=== PATIENT | male | born 1940 | race Caucasian/White ===

== ENCOUNTER 2018-09-21 16:54 | Emergency (ER) | payer MEDICARE, OTHER ==
[2018-09-21 17:03] VITALS: BP 158/81
[2018-09-21] MEDS: Sodium Chloride 0.9% 500 ML IV ONE (17:57)
[2018-09-21] MEDS: Sodium Chloride 0.9% 10 ML Syringe FLUSH PRN (17:58)
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
[2018-09-21] MEDS: Aspirin 81 MG Tab.Chew PO ONE (19:11)
[2018-09-21] MEDS: Nitroglycerin 2% Oint 1 GM UD Packet TOP ONE (19:25)
[2018-09-21] MEDS: Aluminum Hydroxide/Magnesium Hydroxide/Simethicone Susp 30 ML Cup PO ONE (19:25)
[2018-09-21] MEDS: Heparin Sodium 5,000 Units/ML Vial IVPUSH ONE ×2 (19:32→19:33)
[2018-09-21] MEDS: Heparin Sodium/D5W 25,000 UNITS/500 ML BAG IV SCH (19:34)
[2018-09-21] MEDS: Heparin Sodium/D5W 500 ML ONE (19:35)
--- NOTE | 2018-09-22 08:17 | CR ---
Chest: Portable view of the chest was obtained. Comparison: Prior chest x-ray of 07/25/16. Heart size and mediastinum are stable in appearance from prior chest x-ray. Lungs are clear with no acute parenchymal change. Previous sternotomy is noted. Bony structures are grossly intact. Impression: 1. Stable findings. Nothing acute is appreciated on portable chest x-ray. Diagnostic code #2
== END 2018-09-21 22:21 ==
LOC: JD.ED 16:54
DX: I21.4 Non-ST elevation (NSTEMI) myocardial infarction (principal); I10 Essential (primary) hypertension; E11.9 Type 2 diabetes mellitus without complications; Z87.891 Personal history of nicotine dependence; Z79.82 Long term (current) use of aspirin; Z79.899 Other long term (current) drug therapy
CPT/HCPCS: 36415; 71045; 80053; 84484; 85025; 93005; 96361; 96365; 96366; 99285; A9270; J1644; J7040; 93010; 99284

== ENCOUNTER 2018-11-09 18:12 | Emergency (ER) | payer MEDICARE, OTHER ==
[2018-11-09] MEDS ORDERED: cloNIDine 0.1 MG Tab PO ONE ×2 (19:18→19:32)
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
[2018-11-09 20:00] VITALS: BP 196/69
== END 2018-11-09 20:43 | disposition home or self-care (01) ==
LOC: JD.ED 18:12
DX: I10 Essential (primary) hypertension (principal); I25.2 Old myocardial infarction; Z79.82 Long term (current) use of aspirin; Z79.899 Other long term (current) drug therapy; Z87.891 Personal history of nicotine dependence
CPT/HCPCS: 36415; 80053; 84484; 85025; 93005; 99283; A9270; 93010; 99284

== ENCOUNTER 2018-11-22 17:41 | Emergency (ER) | payer MEDICARE ==
[2018-11-22] MEDS ORDERED: cloNIDine 0.1 MG Tab PO ONE (18:29)
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
[2018-11-22 20:09] VITALS: BP 173/73
== END 2018-11-22 20:21 | disposition home or self-care (01) ==
LOC: JD.ED 17:41
DX: I95.1 Orthostatic hypotension (principal); I10 Essential (primary) hypertension; F41.9 Anxiety disorder, unspecified; I25.10 Atherosclerotic heart disease of native coronary artery without angina pectoris; E78.00 Pure hypercholesterolemia, unspecified; I25.2 Old myocardial infarction; K21.9 Gastro-esophageal reflux disease without esophagitis; E11.9 Type 2 diabetes mellitus without complications; Z79.82 Long term (current) use of aspirin; Z79.899 Other long term (current) drug therapy; Z87.891 Personal history of nicotine dependence; Z79.84 Long term (current) use of oral hypoglycemic drugs
CPT/HCPCS: 36415; 80053; 84484; 85007; 85027; 99285; A9270; 93010; 99284

== ENCOUNTER 2020-03-24 16:50 | Emergency (ER) | payer MEDICARE, OTHER ==
[2020-03-24 17:05] VITALS: BP 149/75; PULSE 63
--- NOTE | 2020-03-24 18:08 | EDM.PDOC ---
<Emerson Blackburn Lynette - Last Filed: 03/24/20 17:48> ED HPI GENERAL MEDICAL PROBLEM - General Chief Complaint: Diabetic Complaint Stated Complaint: HIGH BLOOD SUGAR Time Seen by Provider: 03/24/20 17:15 Source of Information: Reports: Patient - History of Present Illness INITIAL COMMENTS - FREE TEXT/NARRATIVE: Patient came to the ER today to be evaluated for abnormally high blood glucose readings at home. Pt has a history of DM 2 for which he takes only metformin. Pt recently had a tooth pulled 2 weeks ago and had been on penicillin x1 week. After finishing his penicillin regimen pt developed a persistent sweet taste in his mouth. This was worse at night.This persistent sweet taste prompted pt to check his blood glucose levels yesterday before his noon meal. Pt reports his glucose levels were in the 170s. Concerned about having elevated glucose levels, as well as this persistent sweet taste, pt rechecked his glucose levels again today before his noon meal and it was in the 180s. Pt reported that he had not checked his glucose levels in a long time and his glucose monitor is somewhat old. I asked pt if he had quality controlled his monitor and he had not, nor did he have any solution to do so. A bedside blood sugar was obtained in the ER with a result of 78. Pt reports that he see his primary care provider, Dr Gilmore, every 3-4 months and had an appointment coming up within the next week. When asked if he has his A1C monitored, pt did not know what this was or if it was being monitored. Time was taken to explain the purpose and relevance of this test. Pt denies excess thirst, dizziness or lightheadedness, excess hunger, increased fatigue or weakness, chills, fever, increased urination, or night sweats. - Related Data Allergies Allergy/AdvReac Type Severity Reaction Status Date / Time No Known Allergies Allergy Verified 03/24/20 17:04 Home Meds: Home Meds Aspirin [Halfprin] 81 mg PO DAILY 09/21/18 [History] Losartan Potassium [Cozaar] 50 mg PO BID 09/21/18 [History] [place]-3/DHA/Epa/Fish Oil [Fish Oil 1,000 mg Softgel] 1 each PO DAILY 09/21/18 [History] Potassium 20 meq PO DAILY 09/21/18 [History] Rosuvastatin Calcium [Crestor] 40 mg PO DAILY 09/21/18 [History] metFORMIN [Glucophage] 500 mg PO DAILY 09/21/18 [History] Docusate Sodium [Stool Softener] 100 mg PO DAILY 11/09/18 [History] Metoprolol Succinate [Toprol XL] 12.5 mg PO DAILY 11/09/18 [History] PARoxetine HCl [Paxil] 10 mg PO QAM #30 tablet 11/22/18 [Rx] Past Medical History HEENT History: Reports: Impaired Vision Cardiovascular History: Reports: CAD, High Cholesterol, Hypertension, [place] Respiratory History: Reports: Sleep Apnea Gastrointestinal History: Reports: GERD Genitourinary History: Reports: BPH Musculoskeletal History: Reports: Other (See Below) Other Musculoskeletal History: DJD right foot, L knee pain Endocrine/Metabolic History: Reports: Diabetes, Type II - Past Surgical History HEENT Surgical History: Reports: Oral Surgery Cardiovascular Surgical History: Reports: Coronary Artery Bypass GI Surgical History: Reports: Colonoscopy Social & Family History - Family History Family Medical History: Noncontributory - Tobacco Use Smoking Status *Q: Former Smoker Used Tobacco, but Quit: Yes Month/Year Tobacco Last Used: 40 years ago - Caffeine Use Caffeine Use: Reports: Coffee - Recreational Drug Use Recreational Drug Use: No ED ROS GENERAL - Review of Systems Review Of Systems: See Below Constitutional: Reports: No Symptoms. Denies: Fever, Chills, Malaise, Weakness, Fatigue, Night Sweats, Diaphoresis, Decreased Appetite, Weight Loss HEENT: Reports: No Symptoms Respiratory: Reports: No Symptoms Cardiovascular: Reports: No Symptoms Endocrine: Reports: High Glucose (See HPI). Denies: Fatigue GI/Abdominal: Reports: No Symptoms : Reports: No Symptoms. Denies: Frequency, Urgency Musculoskeletal: Reports: No Symptoms Skin: Reports: No Symptoms Neurological: Reports: No Symptoms. Denies: Confusion, Dizziness, Weakness Psychiatric: Reports: No Symptoms Hematologic/Lymphatic: Reports: No Symptoms Immunologic: Reports: No Symptoms ED EXAM GENERAL NO PERIP PULSE - Physical Exam Exam: See Below Exam Limited By: No Limitations General Appearance: Alert, WD/WN, No Apparent Distress Ears: Normal External Exam Throat/Mouth: Normal Inspection, Normal Lips, Normal Teeth, Normal Gums, Normal Oropharynx, Normal Voice, No Airway Compromise Head: Atraumatic, Normocephalic Neck: Normal Inspection, Supple, Non-Tender, Full Range of Motion Respiratory/Chest: No Respiratory Distress, Lungs Clear, Normal Breath Sounds, No Accessory Muscle Use, Chest Non-Tender Cardiovascular: Normal Peripheral Pulses, Regular Rate, Rhythm, No Edema, No Gallop, No JVD, No Murmur, No Rub GI/Abdominal: Soft, Non-Tender, No Distention (Male) Exam: Deferred Rectal (Males) Exam: Deferred Neurological: Alert, Oriented, CN II-XII Intact, Normal Cognition, Normal Gait, No Motor/Sensory Deficits Psychiatric: Normal Affect, Normal Mood Skin Exam: Warm, Dry, Intact, Normal Color, No Rash Departure - Departure Disposition: Home, Self-Care 01 Clinical Impression: Elevated blood sugar level - Discharge Information Instructions: Blood Glucose Monitoring, Adult Referrals: Stephane Gilmore MD [Primary Care Provider] - Forms: ED Department Discharge Additional Instructions: You were evaluated in the ER today regarding your elevated blood glucose levels at home. Your blood sugar at today's visit, was within normal limits at 78. Other laboratory evaluation demonstrates no worrisome abnormalities. Your hemoglobin A1c is 6.3 at today's visit, which is acceptable. At this level, there is no further emergent requirements needed for management of your blood sugars. I highly suspect, that your blood sugar monitor at home was not reading eliot ropriately, I recommend that you obtain a new glucose monitor, and check your blood sugars on at least a daily basis, to make sure that they are within normal limits. Regarding the funny taste in your mouth, no clear cause has been determined at today's visit. Recommend you follow-up with Dr. Gilmore, for further management and testing if warranted. Please return to the ER at any time if your symptoms change or worsen. Sepsis Event Note (ED) - Evaluation Sepsis Screening Result: No Definite Risk <Katelyn Ramirez V - Last Filed: 03/24/20 18:56> Course - Vital Signs Last Recorded V/S: Last Vital Signs Temp 97.5 F 03/24/20 17:01 Pulse 63 03/24/20 17:01 Resp 16 03/24/20 17:01 BP 149/75 H 03/24/20 17:01 Pulse Ox 99 03/24/20 17:01 - Orders/Labs/Meds Orders: Active Orders 24 hr Category Date Time Status Glucose [Blood Glucose Check, Bedside] [RC] ONETIME Care 03/24/20 17:16 Ordered Labs: Laboratory Tests 03/24/20 03/24/20 03/24/20 Range/Units 17:10 18:15 18:15 WBC 5.73 (4.23-9.07) K/mm3 RBC 3.92 L (4.63-6.08) M/mm3 Hgb 12.4 L (13.7-17.5) gm/dl Hct 37.1 L (40.1-51.0) % MCV 94.6 H (79.0-92.2) fl MCH 31.6 (25.7-32.2) pg MCHC 33.4 (32.2-35.5) g/dl RDW Std Deviation 42.9 (35.1-43.9) fL Plt Count 215 (163-337) K/mm3 MPV 9.7 (9.4-12.3) fl Neut % (Auto) 66.1 (34.0-67.9) % Lymph % (Auto) 22.7 (21.8-53.1) % [place] % (Auto) 9.1 (5.3-12.2) % Eos % (Auto) 1.6 (0.8-7.0) Baso % (Auto) 0.5 (0.1-1.2) % Neut # (Auto) 3.79 (1.78-5.38) K/mm3 Lymph # (Auto) 1.30 L (1.32-3.57) K/mm3 [place] # (Auto) 0.52 (0.30-0.82) K/mm3 Eos # (Auto) 0.09 (0.04-0.54) K/mm3 Baso # (Auto) 0.03 (0.01-0.08) K/mm3 Sodium 140 (136-145) mEq/L Potassium 4.2 (3.5-5.1) mEq/L Chloride 107 (98-107) mEq/L Carbon Dioxide 28 (21-32) mEq/L Anion Gap 9.2 (5-15) BUN 29 H (7-18) mg/dL Creatinine 1.3 (0.7-1.3) mg/dL Est Cr Clr Drug Dosing 40.90 mL/min Estimated GFR (MDRD) 53 (>60) mL/min BUN/Creatinine Ratio 22.3 H (14-18) Glucose 89 (83-115) mg/dL POC Glucose 78 L (83-110) mg/dL Hemoglobin A1c (4.50-6.20) % Calcium 9.2 (8.5-10.1) mg/dL Total Bilirubin 0.4 (0.2-1.0) mg/dL AST 18 (15-37) U/L ALT 26 (16-63) U/L Alkaline Phosphatase 57 (46-116) U/L Total Protein 6.9 (6.4-8.2) g/dl Albumin 3.7 (3.4-5.0) g/dl Globulin 3.2 gm/dL Albumin/Globulin Ratio 1.2 (1-2) 03/24/20 Range/Units 18:15 WBC (4.23-9.07) K/mm3 RBC (4.63-6.08) M/mm3 Hgb (13.7-17.5) gm/dl Hct (40.1-51.0) % MCV (79.0-92.2) fl MCH (25.7-32.2) pg MCHC (32.2-35.5) g/dl RDW Std Deviation (35.1-43.9) fL Plt Count (163-337) K/mm3 MPV (9.4-12.3) fl Neut % (Auto) (34.0-67.9) % Lymph % (Auto) (21.8-53.1) % [place] % (Auto) (5.3-12.2) % Eos % (Auto) (0.8-7.0) Baso % (Auto) (0.1-1.2) % Neut # (Auto) (1.78-5.38) K/mm3 Lymph # (Auto) (1.32-3.57) K/mm3 [place] # (Auto) (0.30-0.82) K/mm3 Eos # (Auto) (0.04-0.54) K/mm3 Baso # (Auto) (0.01-0.08) K/mm3 Sodium (136-145) mEq/L Potassium (3.5-5.1) mEq/L Chloride (98-107) mEq/L Carbon Dioxide (21-32) mEq/L Anion Gap (5-15) BUN (7-18) mg/dL Creatinine (0.7-1.3) mg/dL Est Cr Clr Drug Dosing mL/min Estimated GFR (MDRD) (>60) mL/min BUN/Creatinine Ratio (14-18) Glucose (83-115) mg/dL POC Glucose (83-110) mg/dL Hemoglobin A1c 6.30 H (4.50-6.20) % Calcium (8.5-10.1) mg/dL Total Bilirubin (0.2-1.0) mg/dL AST (15-37) U/L ALT (16-63) U/L Alkaline Phosphatase (46-116) U/L Total Protein (6.4-8.2) g/dl Albumin (3.4-5.0) g/dl Globulin gm/dL Albumin/Globulin Ratio (1-2) - Re-Assessments/Exams Free Text/Narrative Re-Assessment/Exam: 03/24/20 18:19 I have read and reviewed the student's HPI and examined the patient and agree with Gina Blackburn, [employer]-student. Patient presents to the ED for the evaluation of his elevated blood sugars, and other general complaints. Blood sugar at time of triage is within normal limits at 78. Questioning whether or not his glucose monitor at home is reading accurate. Nonetheless basic labs will be taken to include CBC, CMP and a hemoglobin A1c 03/24/20 18:52 Laboratory evaluation demonstrates no focal worrisome abnormalities. The patient's hemoglobin A1c is 6.3, which is fairly okay for a diabetic. We will have him obtain a new glucose monitor, and check his blood sugars at home, at least 2 times a day to make sure that they are in fact normal, and not elevated. Patient was complaining about the taste in his mouth. Not exactly sure what is causing this, but he is going to follow-up with Dr. Gilmore, sometime this week for further evaluation and management. Departure - Departure Time of Disposition: 18:53 Condition: Good - Discharge Information *PRESCRIPTION DRUG MONITORING PROGRAM REVIEWED*: No *COPY OF PRESCRIPTION DRUG MONITORING REPORT IN PATIENT DAHLIA: No Sepsis Event Note (ED) - Focused Exam Vital Signs: Vital Signs Temp Pulse Resp BP Pulse Ox 03/24/20 17:01 97.5 F 63 16 149/75 H 99 - My Orders Last 24 Hours: My Active Orders 03/24/20 17:16 Glucose [Blood Glucose Check, Bedside] [RC] ONETIME - Assessment/Plan Last 24 Hours: My Active Orders 03/24/20 17:16 Glucose [Blood Glucose Check, Bedside] [] ONETIME
[2020-03-24 18:35] LABS: HEMOGLOBIN A1C 6.3 % (4.50-6.20)
== END 2020-03-24 19:08 | disposition home or self-care (01) ==
LOC: JD.ED 16:50
DX: R73.9 Hyperglycemia, unspecified (principal); E11.9 Type 2 diabetes mellitus without complications; I10 Essential (primary) hypertension; I25.10 Atherosclerotic heart disease of native coronary artery without angina pectoris; E78.00 Pure hypercholesterolemia, unspecified; I25.2 Old myocardial infarction; Z79.899 Other long term (current) drug therapy; Z79.82 Long term (current) use of aspirin; Z87.891 Personal history of nicotine dependence
CPT/HCPCS: 36415; 80053; 82962; 83036; 85025; 99282; 99283

== ENCOUNTER 2020-06-24 13:45 | Emergency (ER) | payer MEDICARE ==
[2020-06-24 14:13] VITALS: PULSE 61
[2020-06-24] MEDS ORDERED: cloNIDine 0.1 MG Tab PO ONE (15:48)
[2020-06-24 16:03] VITALS: BP 207/76
--- NOTE | 2020-06-24 16:04 | EDM.PDOC ---
ED HPI GENERAL MEDICAL PROBLEM - General Chief Complaint: Cardiovascular Problem Stated Complaint: HIGH BLOOD PRESSURE Time Seen by Provider: 06/24/20 15:13 Source of Information: Reports: Patient, Old Records, RN Notes Reviewed History Limitations: Reports: No Limitations - History of Present Illness INITIAL COMMENTS - FREE TEXT/NARRATIVE: Patient is an 80-year-old male who presents to the ED for evaluation of his elevated blood pressure. Patient notes that he does have a history of hypertension and does take losartan/hydrochlorothiazide 100-12.5 mg daily as prescribed. He notes however for the last 3 days his blood pressure has been higher than it usually is. He reports that his systolic blood pressures have been in the 160s. He notes that he has having no symptoms, he feels no headache, no chest pain, no shortness of breath, and feels generally well so he is not sure what is causing the elevated blood pressure. He has not had any recent change in dosage of the medication. He takes his pills at the same time each day. His primary care provider is Dr. Gilmore. He notes that roughly 1 year ago, he was seen for the same problem and they switched his blood pressure medication. He denies being around any known sick contacts. - Related Data Allergies Allergy/AdvReac Type Severity Reaction Status Date / Time No Known Allergies Allergy Verified 06/24/20 14:10 Home Meds: Home Meds [place]-3/DHA/Epa/Fish Oil [Fish Oil 1,000 mg Softgel] 1 each PO DAILY 09/21/18 [History] Rosuvastatin Calcium [Crestor] 40 mg PO DAILY 09/21/18 [History] metFORMIN [Glucophage] 500 mg PO DAILY 09/21/18 [History] Losartan/Hydrochlorothiazide [Losartan-HCTZ 100-12.5 MG] 1 tab PO DAILY 06/24/20 [History] Omeprazole 20 mg PO DAILY 06/24/20 [History] amLODIPine [Norvasc] 5 mg PO DAILY #15 tab 06/24/20 [Rx] Past Medical History HEENT History: Reports: Impaired Vision Cardiovascular History: Reports: CAD, High Cholesterol, Hypertension, [place] Respiratory History: Reports: Sleep Apnea Gastrointestinal History: Reports: GERD Genitourinary History: Reports: BPH Musculoskeletal History: Reports: Other (See Below) Other Musculoskeletal History: DJD right foot, L knee pain Endocrine/Metabolic History: Reports: Diabetes, Type II - Past Surgical History HEENT Surgical History: Reports: Oral Surgery Cardiovascular Surgical History: Reports: Coronary Artery Bypass GI Surgical History: Reports: Colonoscopy Social & Family History - Family History Family Medical History: No Pertinent Family History - Tobacco Use Tobacco Use Status *Q: Former Tobacco User Used Tobacco, but Quit: Yes Month/Year Tobacco Last Used: "long time ago" - Caffeine Use Caffeine Use: Reports: Coffee - Recreational Drug Use Recreational Drug Use: No ED ROS GENERAL - Review of Systems Review Of Systems: Comprehensive ROS is negative, except as noted in HPI. ED EXAM, GENERAL - Physical Exam Exam: See Below Exam Limited By: No Limitations General Appearance: Alert, WD/WN, No Apparent Distress Respiratory/Chest: No Respiratory Distress, Lungs Clear, Normal Breath Sounds, No Accessory Muscle Use, Chest Non-Tender Cardiovascular: Normal Peripheral Pulses, Regular Rate, Rhythm, No Edema, No Murmur Peripheral Pulses: 2+: Radial (L), Radial (R) Extremities: Normal Inspection, Normal Capillary Refill Neurological: Alert, Oriented, Normal Cognition, No Motor/Sensory Deficits Psychiatric: Normal Affect, Normal Mood Skin Exam: Warm, Dry, Intact, Normal Color, No Rash #1 Interpretation EKG Date: 06/24/20 Time: 16:03 Rhythm: NSR Rate (Beats/Min): 56 [place]: Normal P-Wave: Present QRS: LBBB (consider atypical LBBB) ST-T: Normal QT: Normal Comparison: Other: (prior EKG from 11/2018 shows RBBB) EKG Interpretation Comments: No obvious ischemia or acute ST changes noted, reviewed by myself and Dr. Molina. Course - Vital Signs Last Recorded V/S: Last Vital Signs Temp 97 F 06/24/20 14:07 Pulse 61 06/24/20 14:07 Resp 16 06/24/20 14:07 BP 207/76 H 06/24/20 16:01 Pulse Ox 99 06/24/20 14:07 - Orders/Labs/Meds Orders: Active Orders 24 hr Category Date Time Status EKG Documentation Completion [RC] STAT Care 06/24/20 15:50 Active Labs: Laboratory Tests 06/24/20 06/24/20 Range/Units 16:17 16:17 WBC 5.97 (4.23-9.07) K/mm3 RBC 4.15 L (4.63-6.08) M/mm3 Hgb 13.1 L (13.7-17.5) gm/dl Hct 39.2 L (40.1-51.0) % MCV 94.5 H (79.0-92.2) fl MCH 31.6 (25.7-32.2) pg MCHC 33.4 (32.2-35.5) g/dl RDW Std Deviation 41.8 (35.1-43.9) fL Plt Count 198 (163-337) K/mm3 MPV 9.6 (9.4-12.3) fl Neut % (Auto) 61.7 (34.0-67.9) % Lymph % (Auto) 28.8 (21.8-53.1) % [place] % (Auto) 7.9 (5.3-12.2) % Eos % (Auto) 1.3 (0.8-7.0) Baso % (Auto) 0.3 (0.1-1.2) % Neut # (Auto) 3.68 (1.78-5.38) K/mm3 Lymph # (Auto) 1.72 (1.32-3.57) K/mm3 [place] # (Auto) 0.47 (0.30-0.82) K/mm3 Eos # (Auto) 0.08 (0.04-0.54) K/mm3 Baso # (Auto) 0.02 (0.01-0.08) K/mm3 Sodium 143 (136-145) mEq/L Potassium 4.0 (3.5-5.1) mEq/L Chloride 106 (98-107) mEq/L Carbon Dioxide 27 (21-32) mEq/L Anion Gap 14.0 (5-15) BUN 23 H (7-18) mg/dL Creatinine 1.3 (0.7-1.3) mg/dL Est Cr Clr Drug Dosing 36.47 mL/min Estimated GFR (MDRD) 53 (>60) mL/min BUN/Creatinine Ratio 17.7 (14-18) Glucose 82 L (83-115) mg/dL Calcium 9.8 (8.5-10.1) mg/dL Total Bilirubin 0.7 (0.2-1.0) mg/dL AST 20 (15-37) U/L ALT 24 (16-63) U/L Alkaline Phosphatase 60 (46-116) U/L Troponin I < 0.017 (0.00-0.056) ng/mL Total Protein 6.9 (6.4-8.2) g/dl Albumin 3.8 (3.4-5.0) g/dl Globulin 3.1 gm/dL Albumin/Globulin Ratio 1.2 (1-2) Meds: Medications Discontinued Medications Generic Name Dose Route Start Last Admin Trade Name Kenia PRN Reason Stop Dose Admin Clonidine HCl 0.1 mg 06/24/20 15:48 06/24/20 16:01 Catapres PO 06/24/20 15:49 0.1 mg ONETIME ONE Administration - Re-Assessments/Exams Free Text/Narrative Re-Assessment/Exam: 06/24/20 15:56 Patient presents to the ED for evaluation of his elevated blood pressure. We will get baseline labs and EKG for initial evaluation. I have ordered clonidine 0.1 mg at this time to see if this helps lower his blood pressure. Plan is to hopefully add on 5 mg amlodipine daily for further blood pressure management. I will have him follow-up with Dr. Gilmore, sometime this week and keep a log of his blood pressures. 06/24/20 17:07 Labs are unremarkable at this time. Clonidine has worked pretty well, his blood pressure is down to 166 systolically. We will discharge him home with general recommendations and have him follow-up with his regular care provider sometime in the next week with continued blood pressure readings. Departure - Departure Time of Disposition: 17:08 Disposition: Home, Self-Care 01 Condition: Good Clinical Impression: Elevated blood pressure reading in office with diagnosis of hypertension Prescriptions: amLODIPine [Norvasc] 5 mg PO DAILY #15 tab Instructions: Managing Your Hypertension Referrals: Stephane Gilmore MD [Primary Care Provider] - Forms: ED Department Discharge Additional Instructions: You were evaluated in the ER today for your elevated blood pressure readings. Laboratory evaluation and EKG are all unremarkable at this time. You were given 1 dose of medication to help lower your blood pressure in the ER, and this did seem to help your blood pressure. Please continue all other medications as previously prescribed, you have been started on another low-dose blood pressure medication called amlodipine, 5 mg, once daily for the next week or so. Please monitor your blood pressure at home while taking this medication, and follow-up with your primary care provider sometime in the next week or week and a half to make sure that your blood pressure readings are getting back to normal, and for continuation or change in your medication as is warranted. Please return to the ER at any time if your symptoms change or worsen. Sepsis Event Note (ED) - Evaluation Sepsis Screening Result: No Definite Risk - Focused Exam Vital Signs: Vital Signs Temp Pulse Resp BP BP Pulse Ox 06/24/20 16:01 207/76 H 06/24/20 14:07 97 F 61 16 206/69 H 99 - My Orders Last 24 Hours: My Active Orders 06/24/20 15:50 EKG Documentation Completion [RC] STAT - Assessment/Plan Last 24 Hours: My Active Orders 06/24/20 15:50 EKG Documentation Completion [RC] STAT
== END 2020-06-24 17:45 | disposition home or self-care (01) ==
LOC: JD.ED 13:45
DX: I10 Essential (primary) hypertension (principal); E78.00 Pure hypercholesterolemia, unspecified; I25.10 Atherosclerotic heart disease of native coronary artery without angina pectoris; I25.2 Old myocardial infarction; K21.9 Gastro-esophageal reflux disease without esophagitis; E11.9 Type 2 diabetes mellitus without complications; Z87.891 Personal history of nicotine dependence; Z79.899 Other long term (current) drug therapy
CPT/HCPCS: 36415; 80053; 84484; 85025; 93005; 99283; A9270; 93010

== ENCOUNTER 2023-09-07 15:40 | Inpatient (IN) | payer MEDICARE ==
[2023-09-07] MEDS ORDERED: Lidocaine 1% with EPINEPHrine 1:100,000 10 ML MDV INJECT ONE (15:52)
[2023-09-07 16:10] LABS: HEMATOCRIT 34.7 % (42.0-52.0); MEAN CORPUSCULAR HEMOGLOBIN 32.7 pg (28.0-32.0); MEAN CORPUSCULAR HGB CONC 34.6 g/dl (32.0-36.0); MEAN CORPUSCULAR VOLUME 94.6 fl (83.0-99.0); MEAN PLATELET VOLUME 10.2 fl (9.4-12.4); PLATELET COUNT,PLT 198 K/mm3 (150-400); RED BLOOD CELL COUNT 3.67 M/mm3 (4.52-5.90); WHITE BLOOD CELL COUNT,WBC 6.53 K/mm3 (3.9-11.3)
[2023-09-07 16:32] LABS: INR 1.01; PROTHROMBIN TIME 10.8 SECONDS (9.7-12.0)
[2023-09-07 16:47] LABS: ALBUMIN 3.3 g/dl (3.4-5.0); ANION GAP 14.9 (5-15); BILIRUBIN TOTAL 0.4 mg/dL (0.2-1.0); BUN/CREATININE RATIO 16.9 (14-18); CREATININE 1.6 mg/dL (0.7-1.3); EST CRCL DRUG DOSING (CG) 31.57 mL/min; POTASSIUM,K 3.9 mEq/L (3.5-5.1); PROTEIN TOTAL,TP 6.5 g/dl (6.4-8.2)
[2023-09-07] MEDS: Diphtheria,Pertussis(Acell),Tetanus Vaccine 0.5 ML Syringe IM ONE (17:29)
[2023-09-07] MEDS: Lidocaine 1% with EPINEPHrine 1:100,000 20 ML MDV INJECT ONE (17:31)
[2023-09-07] MEDS ORDERED: Acetaminophen/HYDROcodone 325-5 MG Tab PO PRN (19:05)
[2023-09-07] MEDS ORDERED: Morphine 2 MG/ML SYRINGE IVPUSH PRN (19:05)
[2023-09-07] MEDS ORDERED: Ondansetron 4 MG/2 ML SDV IV PRN (19:05)
[2023-09-07] MEDS ORDERED: hydrALAZINE 20 MG/ML SDV IVPUSH PRN (19:13)
[2023-09-07] MEDS ORDERED: 50% Dextrose in Water 50 ML Syringe IVPUSH PRN (19:37)
[2023-09-07] MEDS ORDERED: Glucagon,Human Recombinant 1 MG Vial IM PRN (19:37)
[2023-09-07] MEDS: Rosuvastatin 10 MG Tab PO SCH (20:23)
[2023-09-07] MEDS: Pantoprazole 40 MG Tab.CR PO SCH (20:24)
[2023-09-07] MEDS: Sodium Chloride 0.9% 1,000 ML IV SCH (22:18)
[2023-09-08 04:44] LABS: BASOPHILS PERCENT AUTO 0.3 % (0.0-1.0); EOSINOPHILS ABSOLUTE AUTO 0.1 K/mm3 (0.0-0.4); EOSINOPHILS PERCENT AUTO 0.8 % (0.0-6.0); HEMATOCRIT 33.5 % (42.0-52.0); HEMOGLOBIN 11.4 gm/dl (14.0-18.0); IMMATURE GRAN ABSOLUTE AUTO 0.02 K/mm3 (0.00-0.05); IMMATURE GRAN PERCENT AUTO 0.2 % (0.0-0.4); LYMPHOCYTES PERCENT AUTO 22.1 % (24.0-44.0); MEAN CORPUSCULAR HEMOGLOBIN 31.7 pg (28.0-32.0); MEAN CORPUSCULAR VOLUME 93.1 fl (83.0-99.0); MEAN PLATELET VOLUME 10.1 fl (9.4-12.4); MONOCYTES ABSOLUTE AUTO 0.7 K/mm3 (0.0-0.8); MONOCYTES PERCENT AUTO 7.6 % (0.0-8.0); NEUTROPHILS ABSOLUTE AUTO 6.1 K/mm3 (1.8-7.7); PLATELET COUNT,PLT 189 K/mm3 (150-400)
[2023-09-08 05:40] LABS: ANION GAP 14.5 (5-15); BUN/CREATININE RATIO 16.7 (14-18); CALCIUM 8.8 mg/dL (8.5-10.1); CREATININE 1.2 mg/dL (0.7-1.3); EST CRCL DRUG DOSING (CG) 42.09 mL/min; POTASSIUM,K 3.5 mEq/L (3.5-5.1)
[2023-09-08] MEDS: Insulin Lispro 100 Unit/ML 3 ML KwikPen SUBCUT SCH (06:49)
[2023-09-08 11:04] LABS: MAGNESIUM 1.8 mg/dL (1.8-2.4); PHOSPHORUS 3.1 mg/dL (2.6-4.7); TSH 2.029 uIU/mL (0.358-3.74)
[2023-09-08] MEDS: Polyethylene Glycol 3350 Powder 17 GM Packet PO PRN (14:01)
[2023-09-09 04:38] LABS: BASOPHILS PERCENT AUTO 0.3 % (0.0-1.0); EOSINOPHILS ABSOLUTE AUTO 0.1 K/mm3 (0.0-0.4); HEMATOCRIT 32.3 % (42.0-52.0); IMMATURE GRAN ABSOLUTE AUTO 0.01 K/mm3 (0.00-0.05); IMMATURE GRAN PERCENT AUTO 0.1 % (0.0-0.4); LYMPHOCYTES ABSOLUTE AUTO 1.8 K/mm3 (1.0-4.8); MEAN CORPUSCULAR HEMOGLOBIN 31.8 pg (28.0-32.0); MEAN CORPUSCULAR HGB CONC 34.1 g/dl (32.0-36.0); MEAN CORPUSCULAR VOLUME 93.4 fl (83.0-99.0); MEAN PLATELET VOLUME 10.4 fl (9.4-12.4); MONOCYTES ABSOLUTE AUTO 0.7 K/mm3 (0.0-0.8); MONOCYTES PERCENT AUTO 9.3 % (0.0-8.0); NEUTROPHILS PERCENT AUTO 65.3 % (41.0-71.0); PLATELET COUNT,PLT 189 K/mm3 (150-400); RED BLOOD CELL COUNT 3.46 M/mm3 (4.52-5.90); WHITE BLOOD CELL COUNT,WBC 7.64 K/mm3 (3.9-11.3)
[2023-09-09 05:08] LABS: ANION GAP 13.8 (5-15); BUN/CREATININE RATIO 16.4 (14-18); CALCIUM 8.8 mg/dL (8.5-10.1); CREATININE 1.1 mg/dL (0.7-1.3); EST CRCL DRUG DOSING (CG) 45.92 mL/min; POTASSIUM,K 3.8 mEq/L (3.5-5.1)
[2023-09-09] MEDS: Celecoxib 100 MG Cap PO SCH (09:14)
[2023-09-09 14:07] LABS: APPEARANCE,URINE CLEAR (Clear); BILIRUBIN,URINE NEGATIVE (Negative); COLOR,URINE YELLOW (Yellow); GLUCOSE,URINE NEGATIVE (Negative); KETONES,URINE NEGATIVE (Negative); LEUKOCYTE ESTERASE,URINE NEGATIVE (Negative); NITRITE,URINE NEGATIVE (Negative); OCCULT BLOOD,URINE NEGATIVE (Negative); PROTEIN,URINE 1+ (Negative); UROBILINOGEN,URINE 0.2 (0.2-1.0)
[2023-09-09 14:15] LABS: BACTERIA,URINE FEW /hpf (FEW); EPITHELIAL CELLS,URINE 0-5 /hpf (0-5); HYALINE CASTS,URINE 0-5 /lpf (0-5); MUCUS,URINE MODERATE /hpf (FEW); RBC,URINE 0-5 /hpf (0-5); WBC,URINE 0-5 /hpf (0-5)
[2023-09-10 04:38] LABS: BASOPHILS PERCENT AUTO 0.3 % (0.0-1.0); EOSINOPHILS ABSOLUTE AUTO 0.1 K/mm3 (0.0-0.4); EOSINOPHILS PERCENT AUTO 1.5 % (0.0-6.0); HEMATOCRIT 34.8 % (42.0-52.0); IMMATURE GRAN ABSOLUTE AUTO 0.03 K/mm3 (0.00-0.05); IMMATURE GRAN PERCENT AUTO 0.3 % (0.0-0.4); LYMPHOCYTES ABSOLUTE AUTO 2.1 K/mm3 (1.0-4.8); LYMPHOCYTES PERCENT AUTO 22.3 % (24.0-44.0); MEAN CORPUSCULAR HGB CONC 34.5 g/dl (32.0-36.0); MEAN CORPUSCULAR VOLUME 92.8 fl (83.0-99.0); MEAN PLATELET VOLUME 10.1 fl (9.4-12.4); MONOCYTES ABSOLUTE AUTO 0.8 K/mm3 (0.0-0.8); MONOCYTES PERCENT AUTO 7.8 % (0.0-8.0); NEUTROPHILS ABSOLUTE AUTO 6.5 K/mm3 (1.8-7.7); NEUTROPHILS PERCENT AUTO 67.8 % (41.0-71.0); PLATELET COUNT,PLT 198 K/mm3 (150-400); RED BLOOD CELL COUNT 3.75 M/mm3 (4.52-5.90); WHITE BLOOD CELL COUNT,WBC 9.59 K/mm3 (3.9-11.3)
[2023-09-10 04:55] LABS: BUN/CREATININE RATIO 17.7 (14-18); CALCIUM 9.2 mg/dL (8.5-10.1); CREATININE 1.3 mg/dL (0.7-1.3); EST CRCL DRUG DOSING (CG) 38.85 mL/min
[2023-09-10] MEDS ORDERED: amLODIPine 5 MG Tab PO SCH (13:30)
[2023-09-10] MEDS: amLODIPine 2.5 MG Tab PO SCH (13:39)
[2023-09-11 04:56] LABS: BASOPHILS PERCENT AUTO 0.3 % (0.0-1.0); EOSINOPHILS ABSOLUTE AUTO 0.1 K/mm3 (0.0-0.4); HEMATOCRIT 33.1 % (42.0-52.0); HEMOGLOBIN 11.3 gm/dl (14.0-18.0); IMMATURE GRAN ABSOLUTE AUTO 0.02 K/mm3 (0.00-0.05); IMMATURE GRAN PERCENT AUTO 0.3 % (0.0-0.4); LYMPHOCYTES ABSOLUTE AUTO 1.8 K/mm3 (1.0-4.8); LYMPHOCYTES PERCENT AUTO 26.4 % (24.0-44.0); MEAN CORPUSCULAR HEMOGLOBIN 31.8 pg (28.0-32.0); MEAN CORPUSCULAR HGB CONC 34.1 g/dl (32.0-36.0); MEAN CORPUSCULAR VOLUME 93.2 fl (83.0-99.0); MEAN PLATELET VOLUME 10.4 fl (9.4-12.4); MONOCYTES ABSOLUTE AUTO 0.6 K/mm3 (0.0-0.8); MONOCYTES PERCENT AUTO 9.1 % (0.0-8.0); NEUTROPHILS ABSOLUTE AUTO 4.3 K/mm3 (1.8-7.7); NEUTROPHILS PERCENT AUTO 61.9 % (41.0-71.0); PLATELET COUNT,PLT 191 K/mm3 (150-400); RED BLOOD CELL COUNT 3.55 M/mm3 (4.52-5.90); WHITE BLOOD CELL COUNT,WBC 6.93 K/mm3 (3.9-11.3)
[2023-09-11 05:16] LABS: BUN/CREATININE RATIO 22.5 (14-18); CALCIUM 8.8 mg/dL (8.5-10.1); CREATININE 1.2 mg/dL (0.7-1.3); EST CRCL DRUG DOSING (CG) 42.09 mL/min
[2023-09-11] MEDS: Sennosides 8.6 MG Tab PO PRN (08:06)
[2023-09-12] MEDS: Sennosides/Docusate Sodium 50-8.6 MG Tab PO SCH (08:40)
[2023-09-12] MEDS: amLODIPine 2.5 MG Tab PO ONE (11:51)
[2023-09-12] MEDS: Lactulose Soln 10 GM/15 ML 30 ML UD Cup PO SCH (11:51)
[2023-09-13] MEDS: amLODIPine 5 MG Tab PO SCH (08:08)
[2023-09-14 06:39] LABS: BASOPHILS PERCENT AUTO 0.3 % (0.0-1.0); EOSINOPHILS ABSOLUTE AUTO 0.1 K/mm3 (0.0-0.4); EOSINOPHILS PERCENT AUTO 1.7 % (0.0-6.0); HEMOGLOBIN 11.7 gm/dl (14.0-18.0); IMMATURE GRAN ABSOLUTE AUTO 0.02 K/mm3 (0.00-0.05); IMMATURE GRAN PERCENT AUTO 0.3 % (0.0-0.4); LYMPHOCYTES ABSOLUTE AUTO 1.9 K/mm3 (1.0-4.8); LYMPHOCYTES PERCENT AUTO 26.7 % (24.0-44.0); MEAN CORPUSCULAR HGB CONC 34.4 g/dl (32.0-36.0); MEAN CORPUSCULAR VOLUME 92.9 fl (83.0-99.0); MEAN PLATELET VOLUME 9.9 fl (9.4-12.4); MONOCYTES ABSOLUTE AUTO 0.6 K/mm3 (0.0-0.8); NEUTROPHILS ABSOLUTE AUTO 4.4 K/mm3 (1.8-7.7); PLATELET COUNT,PLT 217 K/mm3 (150-400); RED BLOOD CELL COUNT 3.66 M/mm3 (4.52-5.90); WHITE BLOOD CELL COUNT,WBC 7.08 K/mm3 (3.9-11.3)
[2023-09-14 06:59] LABS: BUN/CREATININE RATIO 23.3 (14-18); CALCIUM 8.9 mg/dL (8.5-10.1); CREATININE 1.2 mg/dL (0.7-1.3); EST CRCL DRUG DOSING (CG) 42.09 mL/min
[2023-09-14] MEDS: Acetaminophen 325 MG Tab PO PRN (20:29)
[2023-09-15 10:01] LABS: BUN/CREATININE RATIO 20.7 (14-18); CALCIUM 8.8 mg/dL (8.5-10.1); CREATININE 1.4 mg/dL (0.7-1.3); EST CRCL DRUG DOSING (CG) 36.08 mL/min
[2023-09-15 10:12] LABS: BASOPHILS PERCENT AUTO 0.4 % (0.0-1.0); EOSINOPHILS ABSOLUTE AUTO 0.1 K/mm3 (0.0-0.4); HEMATOCRIT 35.6 % (42.0-52.0); HEMOGLOBIN 12.1 gm/dl (14.0-18.0); IMMATURE GRAN ABSOLUTE AUTO 0.02 K/mm3 (0.00-0.05); IMMATURE GRAN PERCENT AUTO 0.3 % (0.0-0.4); LYMPHOCYTES ABSOLUTE AUTO 1.6 K/mm3 (1.0-4.8); LYMPHOCYTES PERCENT AUTO 22.4 % (24.0-44.0); MEAN CORPUSCULAR HEMOGLOBIN 31.8 pg (28.0-32.0); MEAN CORPUSCULAR VOLUME 93.7 fl (83.0-99.0); MEAN PLATELET VOLUME 10.4 fl (9.4-12.4); MONOCYTES ABSOLUTE AUTO 0.6 K/mm3 (0.0-0.8); NEUTROPHILS ABSOLUTE AUTO 4.7 K/mm3 (1.8-7.7); NEUTROPHILS PERCENT AUTO 65.9 % (41.0-71.0); PLATELET COUNT,PLT 244 K/mm3 (150-400); WHITE BLOOD CELL COUNT,WBC 7.13 K/mm3 (3.9-11.3)
[2023-09-15 18:47] VITALS: BP 155/75; PULSE 62
== END 2023-09-15 17:35 | disposition home or self-care (01) | DRG 89 ==
LOC: JD.ED 15:40 → JD.MS 18:49 → OBSVTOIN 09-09 09:54
PROVIDERS: ADMIT Student in an Organized Health Care Education/Training Program; ATTEND Internal Medicine
DX: S06.0XAA Concussion with loss of consciousness status unknown, initial encounter (principal); R42 Dizziness and giddiness; N17.9 Acute kidney failure, unspecified; I25.10 Atherosclerotic heart disease of native coronary artery without angina pectoris; E78.00 Pure hypercholesterolemia, unspecified; I10 Essential (primary) hypertension; R00.1 Bradycardia, unspecified; R55 Syncope and collapse; T50.995A Adverse effect of other drugs, medicaments and biological substances, initial encounter; F03.90 Unspecified dementia, unspecified severity, without behavioral disturbance, psychotic disturbance, mood disturbance, and anxiety; X58.XXXA Exposure to other specified factors, initial encounter; G47.30 Sleep apnea, unspecified; K21.9 Gastro-esophageal reflux disease without esophagitis; W19.XXXA Unspecified fall, initial encounter; N40.0 Benign prostatic hyperplasia without lower urinary tract symptoms; E11.9 Type 2 diabetes mellitus without complications; S01.111A Laceration without foreign body of right eyelid and periocular area, initial encounter; Z79.84 Long term (current) use of oral hypoglycemic drugs; Z79.899 Other long term (current) drug therapy; I25.2 Old myocardial infarction; Z98.890 Other specified postprocedural states; Z95.1 Presence of aortocoronary bypass graft
CPT/HCPCS: 12011; 36415; 70450; 70450-26; 72125; 72125-26; 80048; 80053; 81001; 82607; 82746; 82947; 83735; 83880; 84100; 84443; 84484; 85025; 85027; 85610; 86592; 90471; 90715; 92523-GN; 93005; 93010; 93307; 93880; 93880-26; 97110-GP; 97161-GP; 99284; 99285-25; A9270-GY; G0378; J1815; J7030